=== PATIENT | female | born 1960 | race Caucasian/White ===

== ENCOUNTER 2020-09-02 14:37 | Emergency (ER) | payer BC ==
[~2020-09-02] VITALS: Ht 162.6 cm; Wt 65.0 kg
[2020-09-02 15:11] VITALS: BP 137/69
== END 2020-09-02 15:43 | disposition home or self-care (01) ==
LOC: ER 14:37
DX: Z76.89 Persons encountering health services in other specified circumstances (principal); I10 Essential (primary) hypertension; E11.9 Type 2 diabetes mellitus without complications; F03.90 Unspecified dementia, unspecified severity, without behavioral disturbance, psychotic disturbance, mood disturbance, and anxiety; K29.70 Gastritis, unspecified, without bleeding
CPT/HCPCS: 93005; 99283